=== PATIENT | female | born 2000 | race Caucasian/White ===

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

== ENCOUNTER 2020-08-12 09:25 | Emergency (ER) | payer BC, OTHER, SELFPAY ==
[2020-08-12 10:10] VITALS: BP 126/76; PULSE 98; RESP 18; TEMP 36.7; O2SAT 99; BMI 34.1
--- NOTE | 2020-08-12 10:31 | HMH.EDUTC ---
[facility] [place] Clinical Impression: Encounter for laboratory testing for COVID-19 virus Disposition: Home, Self-Care Condition on Discharge: Good Instructions: DI for COVID-19 (Suspected or Confirmed ), Coronavirus Disease 2019, Preventing the Spread of Coronavirus Discharge Instructions Additional Instructions: *Monitor Temp, Over the counter Motrin or Tylenol as directed/as needed Tylenol every 4 hours and Motrin every 6 hours (as long as your family doctor has told you that you can take it) for fever or pain. and straight to ER if unable to lower temp less than 101.0 after medication given *Warm salt water gargles may help to soothe the throat *Throat Lozenges *Warm fluids like tea with honey may help to soothe the throat *Sleep elevated *Humidifier/Vaporizer Follow up IMMEDIATELY for new or worsening symptoms or no Noticeable improvement over the next 48-72 hours. 911 for difficulty breathing or swallowing You were tested for today for COVID19 your test result should be back in the next 24-48 hours, you may call to the [facility] to see if your test results are back in the next 48 hours [phone] [facility] hours are 9am-9pm You was given a handout with instructions for Self Quarantine and Self isolation for while you wait on test results and what to do if they are positive If you are positive the Health Dept will be contacting you also Referrals: Jonathan Stone [Primary Care Provider] - As needed Forms: Work/School Release Time of Disposition: 10:33 Medical Decision Making - Maulik Inquiry Pt receiving controlled substance: No Maulik was queried for this patient: No Vital Signs: 08/12/20 10:10 Temperature 98.0 F Temperature Source Oral Pulse Rate [Right Brachial] 98 H Respiratory Rate 18 Blood Pressure [Right Arm] 126/76 Blood Pressure Mean [Right Arm] 92 Blood Pressure Source [Right Arm] Automatic Cuff Blood Pressure Position [Right Arm] Sitting 02 Sat by Pulse Oximetry 99 Oxygen Delivery Method Room Air Orders (Tests/Meds): ORDERS Category Date Time Status Covid-19 Nasal PCR Sendout [facility] Stat [facility] 08/12/20 10:04 Received [facility] [place] HPI - General Stated complaint: Covid test Time Seen by Provider: 08/12/20 10:31 Mode of Arrival: Ambulatory Source of Information: Patient Limitations: No Limitations Description of Symptoms (Recalled from Triage Doc. by RN): PATIENT TEST POSITIVE WITH RAPID TEST AT WORK. NEEDING A PCR. HEENT Symptoms (Recalled from RN notes): No Resp Symptoms (Recalled from RN notes): No Skin Symptoms (Recalled from RN notes): No MS Symptoms (Recalled from RN notes): No Functional Status (Recalled from RN notes): WNL - History of Present Illness Provider Complaint: Patient states that she tested positive on Rapid COVID test at work States that she has been having body aches, chills and over all not feeling well and they wanted her to come in and get PCR test - Related Data Home Medications Medication Instructions Recorded Confirmed norethindrone acetate 1.5 1 tab PO DAILY 04/22/18 10/17/18 mg-ethinyl estradiol 30 mcg tablet Previous Rx's Medication Instructions Recorded Ondansetron [Zofran 4mg ODT] 4 mg PO Q8HP PRN #20 tab.rapdis 08/23/19 Allergies Allergy/AdvReac Type Severity Reaction Status Date / Time cephalexin [From KEFLEX] Allergy Unknown Verified 06/20/18 11:05 - Worker's Comp Is this a Worker's Comp case?: No [facility] History - Hepatitis A Screen Drug use history?: No High risk sexual behaviors?: No History of sexually transmitted infection?: No Currently employed?: No Childcare worker?: No Do you have indoor plumbing?: Yes Do you have electricity?: Yes Attestation statement:: This patient has been screened for Hepatitis A risk factors. I have reviewed the patient's past medical history: Yes Medical History: Denies:: Cancer, Diabetes Mellitus Type 1, Diabetes Mellitus Type 2, MRSA Laterality Cases: Bilateral: Tonsillectomy Amp
[2020-08-12 10:45] VITALS: BP 126/76; PULSE 98; RESP 18; TEMP 36.7; O2SAT 99
[2020-08-13 10:12] LABS: Covid-19 Nasal PCR Sendout P&C POSITIVE
--- NOTE | 2020-08-13 10:46 | PC.NURSE ---
PT NOTIFIED OF POSITIVE COVID RESULT
== END 2020-08-12 10:48 | disposition home or self-care (01) ==
PROVIDERS: Emergency Provider Nurse Practitioner; PCP Internal Medicine
DX: U07.1 COVID-19 (principal); F17.210 Nicotine dependence, cigarettes, uncomplicated
CPT/HCPCS: 99202; G0463; U0004

== ENCOUNTER → 2021-07-06 14:19 | Outpatient (CLI) | payer BC, OTHER, SELFPAY ==
[2021-07-06 15:03] LABS: Basophils % 0.3 % (0.1-2.0); Eosinophils % 0.3 % (0.1-12.0); Hemoglobin 13.2 g/dL (12.2-16.2); Lymphocytes # 1.1 K/mm3 (0.7-4.5); Lymphocytes % 13.8 % (10-50); Mean Corpuscular HGB Conc 32.8 g/dL (31.8-35.4); Mean Corpuscular Hemoglobin 29.3 pg (27.0-31.2); Mean Corpuscular Volume 89.1 fl (81-99); Mean Platelet Volume 6.8 fl (7.4-10.4); Monocytes # 0.3 K/mm3 (0.1-1.0); Monocytes % 3.6 % (1.7-9.3); Neutrophils # 6.5 K/mm3 (1.8-7.8); Neutrophils % 82.1 % (37.0-80.0); Platelet Count 519 K/mm3 (142-424); Red Blood Count 4.49 M/mm3 (4.20-5.40); Red Cell Distribution Width 12.3 % (11.5-17.5); White Blood Count 7.9 K/mm3 (4.8-10.8)
[2021-07-06 15:07] LABS: Alanine Aminotransferase 26 U/L (12-78); Albumin Level 4.3 g/dl (3.5-5.0); Albumin/Globulin Ratio 1.4 (1.1-1.8); Alkaline Phosphatase 70 U/L (38-126); Amylase 42 U/L (30-110); Anion Gap 13.3 mEq/L (5-15); Aspartate Amino Transferase 22 U/L (14-36); Bilirubin,Total 1.5 mg/dl (0.2-1.3); Blood Urea Nitrogen 13 mg/dl (7-17); Calcium 9.2 mg/dl (8.4-10.2); Carbon Dioxide 29 mmol/L (22.0-30.0); Chloride 98 mmol/L (98-107); Estimated Glomerular Filt Rate 106 ml/min (>60); GFR (African American) 128 ML/MIN (>60); Globulin 3.1 g/dL (1.3-3.2); Glucose 107 mg/dl (74-100); Potassium 4.3 mmoL/L (3.5-5.1); Sodium 136 mmol/L (136-145); Total Protein,Serum 7.4 g/dl (6.3-8.2)
[2021-07-06 15:43] LABS: Urine Pregnancy, HCG Qual. Negative (Negative)
== END ==
PROVIDERS: Visit Provider Internal Medicine
DX: R10.11 Right upper quadrant pain (principal)
CPT/HCPCS: 36415; 80053; 81025; 82150; 85025

== ENCOUNTER → 2021-07-13 08:57 | Outpatient (CLI) | payer BC, OTHER, SELFPAY ==
--- NOTE | 2021-07-13 09:00 | US_ITS ---
PROCEDURE: US ABDOMEN LIMITED CLINICAL INDICATION: RUQ PAIN COMPARISON: No exams were available for comparison FINDINGS: PANCREAS: Unremarkable. No obvious mass or abnormal fluid collection. No ductal dilatation LIVER: No focal liver lesions demonstrated. Homogeneous echogenicity. No intrahepatic biliary ductal dilatation evident. There is appropriate direction of blood flow within a non dilated portal vein RIGHT KIDNEY: Unremarkable. Normal size and echogenicity. No hydronephrosis GALLBLADDER: No gallstones, gallbladder wall thickening, pericholecystic fluid, or biliary dilatation. IMPRESSION: Unremarkable limited abdominal ultrasound as detailed above disc Dictated by: Iker Vidal MD 07/13/2021 16:43 Iker Vidal MD in [place] 07/13/2021 16:43
== END ==
PROVIDERS: PCP Internal Medicine; Visit Provider Internal Medicine
DX: R10.11 Right upper quadrant pain (principal); R11.2 Nausea with vomiting, unspecified
CPT/HCPCS: 76705

== ENCOUNTER → 2021-09-07 12:11 | Outpatient (CLI) | payer BC, OTHER, SELFPAY ==
[2021-09-07 13:16] LABS: Basophils # 0.1 K/mm3 (0-0.2); Basophils % 0.7 % (0.1-2.0); Eosinophils # 0.2 K/mm3 (0.0-0.4); Eosinophils % 2.4 % (0.1-12.0); Hematocrit 41.1 % (37.0-47.0); Hemoglobin 13.3 g/dL (12.2-16.2); Lymphocytes # 3.4 K/mm3 (0.7-4.5); Lymphocytes % 38.5 % (10-50); Mean Corpuscular HGB Conc 32.4 g/dL (31.8-35.4); Mean Corpuscular Hemoglobin 28.7 pg (27.0-31.2); Mean Corpuscular Volume 88.7 fl (81-99); Mean Platelet Volume 7.9 fl (7.4-10.4); Monocytes # 0.5 K/mm3 (0.1-1.0); Monocytes % 5.1 % (1.7-9.3); Neutrophils # 4.8 K/mm3 (1.8-7.8); Neutrophils % 53.3 % (37.0-80.0); Platelet Count 401 K/mm3 (142-424); Red Blood Count 4.63 M/mm3 (4.20-5.40); Red Cell Distribution Width 12.8 % (11.5-17.5); White Blood Count 8.9 K/mm3 (4.8-10.8)
[2021-09-07 13:37] LABS: Chloride 105 mmol/L (98-107); Potassium 4.3 mmoL/L (3.5-5.1); Sodium 136 mmol/L (136-145)
[2021-09-07 13:39] LABS: Alanine Aminotransferase 11 U/L (12-78); Alkaline Phosphatase 49 U/L (38-126); Aspartate Amino Transferase 19 U/L (14-36); Bilirubin,Total 0.6 mg/dl (0.2-1.3); Blood Urea Nitrogen 14 mg/dl (7-17); Estimated Glomerular Filt Rate 106 ml/min (>60); GFR (African American) 128 ML/MIN (>60)
[2021-09-07 13:40] LABS: Albumin Level 4.2 g/dl (3.5-5.0); Albumin/Globulin Ratio 1.5 (1.1-1.8); Anion Gap 9.3 mEq/L (5-15); Calcium 8.5 mg/dl (8.4-10.2); Carbon Dioxide 26 mmol/L (22.0-30.0); Cholesterol 164 mg/dl (140-200); Globulin 2.8 g/dL (1.3-3.2); Glucose 78 mg/dl (74-100); HDL Cholesterol 55 mg/dl (40-60); Triglycerides 183 mg/dl (30-150); VLDL Cholesterol 37 mg/dL (0-40)
[2021-09-07 13:51] LABS: Direct LDL Cholesterol 90.79 mg/dL (100-129)
[2021-09-07 14:12] LABS: HCG Qualitative, Serum Negative (Negative)
== END ==
PROVIDERS: Visit Provider Internal Medicine
DX: E03.9 Hypothyroidism, unspecified (principal); L74.519 Primary focal hyperhidrosis, unspecified; R11.2 Nausea with vomiting, unspecified; Z32.00 Encounter for pregnancy test, result unknown
CPT/HCPCS: 80053; 80061; 84443; 84703; 85025

== ENCOUNTER → 2023-03-29 13:54 | Outpatient (CLI) | payer BC, SELFPAY ==
[2023-03-29 15:37] LABS: Amylase 43 U/L (30-110)
[2023-03-29 15:40] LABS: Basophils % 0.3 % (0.1-2.0); Eosinophils # 0.1 K/mm3 (0.0-0.4); Eosinophils % 1.6 % (0.1-12.0); Hematocrit 42.9 % (37.0-47.0); Hemoglobin 14.2 g/dL (12.2-16.2); Lymphocytes # 2.1 K/mm3 (0.7-4.5); Lymphocytes % 25.7 % (10-50); Mean Corpuscular Hemoglobin 30.4 pg (27.0-31.2); Mean Corpuscular Volume 92.1 fl (81-99); Mean Platelet Volume 8.5 fl (7.4-10.4); Monocytes # 0.4 K/mm3 (0.1-1.0); Monocytes % 4.6 % (1.7-9.3); Neutrophils # 5.6 K/mm3 (1.8-7.8); Neutrophils % 67.7 % (37.0-80.0); Platelet Count 358 K/mm3 (142-424); Red Blood Count 4.66 M/mm3 (4.20-5.40); Red Cell Distribution Width 12.3 % (11.5-17.5); White Blood Count 8.3 K/mm3 (4.8-10.8)
[2023-04-01 17:18] LABS: Thyroid Stimulating Hormone 0.74 uIU/mL (0.465-4.68)
== END ==
PROVIDERS: PCP Internal Medicine; Visit Provider Internal Medicine
DX: R10.13 Epigastric pain (principal); E03.9 Hypothyroidism, unspecified
CPT/HCPCS: 82150; 84443; 85025

== ENCOUNTER 2023-04-02 08:14 | Emergency (ER) | payer BC, SELFPAY ==
[2023-04-02 08:15] VITALS: BP 146/85; PULSE 72; RESP 16; TEMP 36.8; O2SAT 98; BMI 30.5
--- NOTE | 2023-04-02 08:28 | PC.NURSE ---
dr ernst at bedside
[2023-04-02 08:31] LABS: Basophils # 0.1 K/mm3 (0-0.2); Basophils % 0.6 % (0.1-2.0); Eosinophils # 0.2 K/mm3 (0.0-0.4); Eosinophils % 1.6 % (0.1-12.0); Hematocrit 43.6 % (37.0-47.0); Hemoglobin 14.1 g/dL (12.2-16.2); Lymphocytes % 33.3 % (10-50); Mean Corpuscular HGB Conc 32.3 g/dL (31.8-35.4); Mean Corpuscular Hemoglobin 28.9 pg (27.0-31.2); Mean Corpuscular Volume 89.3 fl (81-99); Mean Platelet Volume 7.7 fl (7.4-10.4); Monocytes # 0.4 K/mm3 (0.1-1.0); Monocytes % 3.7 % (1.7-9.3); Neutrophils # 7.4 K/mm3 (1.8-7.8); Neutrophils % 60.9 % (37.0-80.0); Platelet Count 393 K/mm3 (142-424); Red Blood Count 4.88 M/mm3 (4.20-5.40); Red Cell Distribution Width 12.1 % (11.5-17.5); White Blood Count 12.1 K/mm3 (4.8-10.8)
--- NOTE | 2023-04-02 08:37 | HMH.EDGENADL ---
Discharge Plan Disposition Patient Disposition: Home, Self-Care Prescriptions Prescriptions: New esomeprazole magnesium 20 mg capsule,delayed release(DR/EC) 20 mg PO DAILY 56 Days Qty: 56 1RF alum-mag hydroxide-simeth [Maalox Maximum Strength] 400-400-40 mg/5 mL suspension 5 ml PO Q6H PRN (Reason: indigestion) Qty: 355 1RF No Action Loestrin 1.5/30 (21) 1.5-30 mg-mcg tablet 1 tab PO DAILY Rx Instructions: Patient no longer taking ondansetron 4 MG tablet,disintegrating 4 mg PO Q8HP PRN (Reason: Nausea) Qty: 20 0RF levonorg-eth estrad triphasic [Enpresse] 50-30 (6)/75-40 (5)/125-30(10) tablet 1 tab PO DAILY Patient Comments: TAKE 1 TABLET BY MOUTH ONCE DAILY famotidine 20 mg tablet 20 mg PO DAILY Referrals Follow up/Referrals: Jonathan Stone MD [Primary Care Provider] - See instructions Activity Restrictions/Add. Instructions Additional Instructions/Restrictions: Take esomeprazole 20 mg (1 tab) each night for 6 weeks. If symptoms do not improve after about 1 week, increase to 40 mg (2 tabs) each night. Maalox 2-3 times per day for symptoms, this will also help just prior to eating. Call your family doctor to establish care for this visit to the emergency department and schedule follow-up within 48 hours to ensure improvement. If you have any worsening of your condition or any other concerning signs or symptoms, return to the emergency department or your primary care doctor for further evaluation. Clinical Impressions Clinical Impression: Gastritis Qualifiers: Gastritis type: unspecified gastritis Chronicity: acute Gastritis bleeding: without bleeding Qualified Code(s): K29.00 - Acute gastritis without bleeding Instructions Patient Instructions: DI for Acute Abdominal Pain Discharge ED Provider: Wilton Woo [facility] Adult HPI General Chief complaint: Abdominal Pain Stated complaint: vomiting, diarrhea Time Seen by Provider: 04/02/23 08:18 Mode of Arrival: Ambulatory Source of Information: Patient Limitations: No Limitations Description of Symptoms (Recalled from ER Triage Doc. by RN): pt reports intermittent abdominal pain, vomiting, nausea, and diarrhea x2 weeks, states abdominal pain occurs after she eats, saw Dr Stone on [place] for this and he ordered a MRI and upper scope History of Present Illness HPI narrative: Is a 22-year-old female who is otherwise healthy presenting with vomiting. Patient states that she has been vomiting basically every day for the last 2 weeks. Saw primary care, was given ondansetron and famotidine without relief. Patient states that she vomits primarily with eating. She eats, within a couple of minutes she is vomiting nonbloody, nonbilious vomit. She is also been having nonbloody, non-mucousy diarrhea. Has had associated mild epigastric pain worse with vomiting that does not radiate. Denies fevers or chills, rash, chest pain, shortness of breath, dysuria, hematuria, abnormal vaginal discharge or bleeding, or any other concerns. Does not have any surgical history. Related Data Home Medications Medication Instructions Recorded Confirmed norethindrone acetate 1.5 1 tab PO DAILY bc 04/22/18 04/02/23 mg-ethinyl estradiol 30 mcg tablet (Loestrin) famotidine 20 mg tablet 20 mg PO DAILY . 04/02/23 04/02/23 l.norgest-eth.estradiol triphasic 1 tab PO DAILY control 04/02/23 04/02/23 50-30 (6)/75-40(5)/125-30(10) tablet (Enpresse) Previous Rx's Medication Instructions Recorded ondansetron 4 mg disintegrating 4 mg PO Q8HP PRN Nausea ##20 08/23/19 tablet aluminum-mag hydroxide-simethicone 5 ml PO Q6H PRN indigestion #355 mL 04/02/23 400 mg-400 mg-40 mg/5 mL oral susp (Maalox Maximum Strength) esomeprazole magnesium 20 mg 20 mg PO DAILY 8 weeks #56 caps 04/02/23 capsule,delayed release Allergies Allergy/AdvReac Type Severity Reaction Status Date / Time cephalexin [From KEFLEX] Allergy Unknown Verified
[2023-04-02 08:43] LABS: Microscopic, Urine URINE MICROSCOPIC (MICROSCOPIC)
[2023-04-02 08:44] LABS: Alanine Aminotransferase 20 U/L (12-78); Albumin Level 4.7 g/dl (3.5-5.0); Albumin/Globulin Ratio 1.3 (1.1-1.8); Alkaline Phosphatase 61 U/L (38-126); Anion Gap 14.6 mEq/L (5-15); Aspartate Amino Transferase 27 U/L (14-36); Bilirubin,Total 0.9 mg/dl (0.2-1.3); Blood Urea Nitrogen 9 mg/dl (7-17); Calcium 9.3 mg/dl (8.4-10.2); Carbon Dioxide 25 mmol/L (22.0-30.0); Chloride 105 mmol/L (98-107); Creatinine Clearance Estimated 176 mL/min (50-200); Estimated Glomerular Filt Rate 105 ml/min (>60); GFR (African American) 127 ML/MIN (>60); Globulin 3.6 g/dL (1.3-3.2); Glucose 124 mg/dl (74-100); Lipase 65 U/L (23-300); Potassium 3.6 mmoL/L (3.5-5.1); Sodium 141 mmol/L (136-145); Total Protein,Serum 8.3 g/dl (6.3-8.2)
[2023-04-02 08:44] LABS: Appearance,Urine CLEAR (Clear); Bilirubin,Urine Negative (Negative); Blood, Urine TRACE-I (Negative); Color,Urine YELLOW (Yellow); Glucose,Urine (UA) Negative (Negative); Ketones,Urine Negative (Negative); Leukocyte Esterase,Urine Negative (Negative); Nitrate,Urine Negative (Negative); PH,Urine 6.5 (5.0-8.5); Protein,Urine Negative (Negative); Specific Gravity, Urine <= 1.005 (1.005-1.030); Urobilinogen,Urine 0.2 EU/dl (0.2)
[2023-04-02 08:54] LABS: Bacteria,Urine Trace /lpf; RBC,Urine Occasional #/hpf (0-3); Squamous Epithelial Cell,Urine Occasional #/hpf (0-5)
[2023-04-02 09:02] VITALS: BP 139/75; PULSE 83; RESP 18; O2SAT 100
[2023-04-02 09:05] LABS: HCG,Quantitative < 2 mIU/ml (0-5.42)
--- NOTE | 2023-04-02 09:25 | PC.NURSE ---
provided pt with warm blanket.
[2023-04-02 09:30] VITALS: BP 128/65; PULSE 68; O2SAT 100
--- NOTE | 2023-04-02 09:48 | PC.NURSE ---
assisted pt to the bathroom and back to room. call light within reach. bed in lowest position. no questions or concerns voiced at this time.
[2023-04-02 10:00] VITALS: BP 120/71; PULSE 91; O2SAT 99
[2023-04-02 10:43] VITALS: BP 122/73; PULSE 85; RESP 18; TEMP 36.7; O2SAT 98
== END 2023-04-02 10:43 | disposition home or self-care (01) ==
PROVIDERS: Emergency Provider Emergency Medicine; PCP Internal Medicine
DX: K29.00 Acute gastritis without bleeding (principal); R10.13 Epigastric pain
CPT/HCPCS: 80053; 81001; 83690; 84702; 85025; 96361; 96374; 96375; 99285; J0131

== ENCOUNTER → 2023-04-13 09:23 | Outpatient (CLI) | payer BC, SELFPAY ==
--- NOTE | 2023-04-13 09:34 | FL_ITS ---
FINAL REPORT CLINICAL HISTORY: EPIGASTRIC PAIN Fluoro time: .14 DAP 113.14 FINDINGS: UPPER GI EXAM HISTORY: Epigastric pain. PROCEDURE: The patient ingested barium. Effervescent crystals were also administered. Spot and overhead films were obtained. FINDINGS: The esophagus is normal. There is no hiatal hernia. There is no gastroesophageal reflux. Peristalsis is normal. The rugal fold pattern of the stomach is normal. The duodenal bulb is normal. Fluoro time: 1.49 minutes. DAP: 113.14 uGym2. 17 radiographs were obtained IMPRESSION: Normal upper GI. Films reviewed , interpreted and dictated by Dr. Morales. Transcribed by Pradip Hawley PA-C. Reviewed, Interpreted and Dictated by Timur Morales MD Transcribed by ALBERTO oMntoya Authenticated and [facility]
== END ==
PROVIDERS: PCP Internal Medicine; Visit Provider Internal Medicine
DX: R10.13 Epigastric pain (principal)
CPT/HCPCS: 74246

== ENCOUNTER 2023-12-27 23:17 | Emergency (ER) | payer BC, SELFPAY ==
--- NOTE | 2023-12-27 23:22 | ED_ITS ---
Discharge Plan Disposition Patient Disposition: Home, Self-Care Prescriptions Prescriptions: New promethazine 25 mg tablet 25 mg PO Q6H PRN (Reason: nausea and vomiting) Qty: 20 0RF No Action Loestrin 1.5/30 (21) 1.5-30 mg-mcg tablet 1 tab PO DAILY Rx Instructions: Patient no longer taking ondansetron 4 MG tablet,disintegrating 4 mg PO Q8HP PRN (Reason: Nausea) Qty: 20 0RF levonorg-eth estrad triphasic [Enpresse] 50-30 (6)/75-40 (5)/125-30(10) tablet 1 tab PO DAILY Patient Comments: TAKE 1 TABLET BY MOUTH ONCE DAILY famotidine 20 mg tablet 20 mg PO DAILY esomeprazole magnesium 20 mg capsule,delayed release(DR/EC) 20 mg PO DAILY 56 Days Qty: 56 1RF alum-mag hydroxide-simeth [Maalox Maximum Strength] 400-400-40 mg/5 mL suspension 5 ml PO Q6H PRN (Reason: indigestion) Qty: 355 1RF Referrals Follow up/Referrals: Jonathan Stone MD [Primary Care Provider] - See instructions Activity Restrictions/Add. Instructions Additional Instructions/Restrictions: Please follow-up with your primary care provider. Please return to the emergency department if you develop any new or worsening symptoms or become concerned for your health. Please take Phenergan and Zofran as needed for nausea and vomiting. Clinical Impressions Clinical Impression: Nausea and vomiting, Diarrhea, Acute dehydration Instructions Patient Instructions: DI for Diarrhea and Traveler's Diarrhea -- Adult, DI for Diarrhea and Traveler's Diarrhea -- Child, DI for Nausea -- Adult, DI for Nausea -- Child Discharge ED Provider: Myron Herrera General Adult HPI General Chief complaint: Nausea/Vomiting/Diarrhea Stated complaint: vomiting and diarrhea Time Seen by Provider: 12/27/23 23:19 History of Present Illness HPI narrative: 23-year-old female without significant past medical history presents to the ER with acute nausea vomiting and diarrhea. She reports this started at approximately 1 PM. She took some Zofran at that time and again at 5 PM. Despite this, she reports she has vomited at least 30 times and had significant repeated diarrhea. She denies any fever, recent illness, abnormal food ingestion or obvious sick contacts. She reports some crampy abdominal pain, reports it is generalized in nature and present only with vomiting. Denies any urinary symptoms. Denies any history of abdominal surgery. Last menstrual cycle was 1 week ago. Related Data Home Medications Medication Instructions Recorded Confirmed norethindrone acetate 1.5 1 tab PO DAILY bc 04/22/18 04/02/23 mg-ethinyl estradiol 30 mcg tablet (Loestrin) famotidine 20 mg tablet 20 mg PO DAILY . 04/02/23 04/02/23 l.norgest-eth.estradiol triphasic 1 tab PO DAILY control 04/02/23 04/02/23 50-30 (6)/75-40(5)/125-30(10) tablet (Enpresse) Previous Rx's Medication Instructions Recorded ondansetron 4 mg disintegrating 4 mg PO Q8HP PRN Nausea ##20 08/23/19 tablet aluminum-mag hydroxide-simethicone 5 ml PO Q6H PRN indigestion #355 mL 04/02/23 400 mg-400 mg-40 mg/5 mL oral susp (Maalox Maximum Strength) esomeprazole magnesium 20 mg 20 mg PO DAILY 8 weeks #56 caps 04/02/23 capsule,delayed release promethazine 25 mg tablet 25 mg PO Q6H PRN nausea and 12/28/23 vomiting #20 tabs Allergies Allergy/AdvReac Type Severity Reaction Status Date / Time cephalexin [From KEFLEX] Allergy Unknown Verified 04/02/23 08:34 [facility] Disclaimer: The information contained in this section may have been updated after the patient was seen, as this information can be updated by other users. Social History Smoking Status: Current every day smoker tobacco type: cigarettes packs per day: 1 second hand exposure: Yes alcohol intake: never substance use type: denies use current occupational status: other Travel in the last 8 weeks: None household members: family housing: house ROS Obtained: Yes All systems reviewed & no additional complaints except as documented Physical Exam General General appearance: alert and in no apparent distress Head Head exam: atraumatic and normocephalic Eye Eye exam: Present normal appearance, PERRL and EOMI ENT ENT exam: Present normal oropharynx and normal external ear exam Neck Neck exam: Present normal inspection and full ROM Chest Chest inspection: Present normal inspection and symmetric chest wall rise; Absent tenderness Respiratory Respiratory exam: Present normal lung sounds bilaterally; Absent respiratory distress Cardiovascular Cardiovascular exam: Present normal rhythm and tachycardia Abdominal Exam Abdominal exam: Present soft; Absent distention, tenderness or guarding Extremities Exam Extremities exam: Present normal inspection; Absent edema or joint swelling Back Exam Back exam: Present normal inspection; Absent tenderness Neurological Exam Neurological exam: Present alert and oriented X3; Absent motor sensory deficit Psychiatric Psychiatric exam: Present normal affect and normal mood Skin Skin exam: Present warm, dry and normal color Lymphatic Lymphatic Findings: no adenopathy Medical Decision Making Medical Records Medical records reviewed: Yes I reviewed the patient's medical records. Maulik Inquiry Pt receiving controlled substance: No Maulik was queried for this patient: No Vital Signs: 12/27/23 23:26 12/27/23 23:30 Temperature 99.5 F Temperature Source Oral Pulse Rate 122 H Pulse Rate [Right Radial] 134 H Respiratory Rate 20 Blood Pressure 126/75 Blood Pressure [Left Arm] 137/89 Blood Pressure Mean 92 Blood Pressure Mean [Left Arm] 105 Blood Pressure Source [Left Arm] Automatic Cuff Blood Pressure Position [Left Arm] Sitting 02 Sat by Pulse Oximetry 97 97 Oxygen Delivery Method Room Air Lab Data Lab results reviewed: Yes I reviewed the patient's lab results. Lab Results 12/27/23 23:25: WBC 10.5, RBC 5.36, Hgb 16.3 H, Hct 48.7 H, MCV 90.9, MCH 30.4, MCHC 33.5, RDW 12.8, Plt Count 364, MPV 7.5, Neut % (Auto) 94.5 H, Lymph % (Auto) 1.9 L, Brooke % (Auto) 2.4, Eos % (Auto) 0.7, Baso % (Auto) 0.4, Neut # (Auto) 10.0 H, Lymph # (Auto) 0.2 L, Brooke # (Auto) 0.3, Eos # (Auto) 0.1, Baso # (Auto) 0.0, Total Counted 100, Neutrophils % (Manual) 92 H, Lymphocytes % (Manual) 7 L, Monocytes % (Manual) 1 L, Platelet Estimate Normal, RBC Morphology Normal, Sodium 138, Potassium 4.1, Chloride 104, Carbon Dioxide 21 L, Anion Gap 17.1 H, BUN 18 H, Creatinine 0.70, Estimated Creat Clear 179, Estimated GFR 104, Est GFR ( Amer) 125, Glucose 163 H, Calcium 9.6, Magnesium 1.5 L, Total Bilirubin 2.8 H, AST 29, ALT 29, Alkaline Phosphatase 76, Total Protein 8.3 H, Albumin 4.8, Globulin 3.5 H, Albumin/Globulin Ratio 1.4, Lipase 32, Serum HCG, Qual Negative 12/27/23 23:25 12/27/23 23:25 Orders (Tests/Meds): ED MEDICATIONS Generic Name Dose Route Start Last Admin Trade Name Freq PRN Reason Stop Dose Admin Lactated Ringer's 1,000 mls @ 999 mls/hr 12/27/23 23:30 12/28/23 00:13 Lactated Ringer's 1000 Ml Bag IV 12/28/23 01:30 999 mls/hr .Q1H1M NEL Administration Discontinued Medications Generic Name Dose Route Start Last Admin Trade Name Freq PRN Reason Stop Dose Admin Acetaminophen 1,000 mg 12/28/23 00:20 12/28/23 00:21 Acetaminophen 500mg Tab PO 12/28/23 00:21 1,000 mg ONCE ONE Administration Metoclopramide HCl 10 mg 12/27/23 23:26 12/27/23 23:31 Metoclopramide Hcl 10mg/2ml Vial IVP 12/27/23 23:27 10 mg ONCE ONE Administration Ondansetron HCl 4 mg 12/27/23 23:26 12/27/23 23:31 Ondansetron 4mg/2ml Vial IV 12/27/23 23:27 4 mg ONCE ONE Administration ORDERS Category Date Time Status CBC w/Auto Diff [Complete Blood Count Auto Diff] Stat Lab 12/27/23 23:25 Completed CMP [Comprehensive Metabolic Panel] Stat Lab 12/27/23 23:25 Completed HCG Qualitative, Serum Stat Lab 12/27/23 23:25 Completed Lipase Stat Lab 12/27/23 23:25 Completed Magnesium Stat Lab 12/27/23 23:25 Completed Medical Decision Narrative: 23-year-old female without significant past medical history presents with nausea vomiting and diarrhea for approximately 12 hours. Reports it is severe and persistent nature despite home medications.. History was obtained interactive discussion with patient, chart review. On arrival, patient is [afebrile, hemodynamically stable but tachycardic, satting appropriately, alert, oriented x4, GCS 15], moving all extremities spontaneously. Full physical exam performed and significant for benign abdominal exam. Differential includes but is not limited to gastroenteritis, pancreatitis, , gallbladder pathology, electrolyte derangement. Patient was given 2 L IV fluid bolus, Reglan, Zofran, for symptomatic management and correction of underlying abnormalities. Workup initiated including CBC CMP lipase test mag. On re-evaluation, patient [remains afebrile, HD stable.] Tachycardia resolved, now sinus rhythm in the 90s. Laboratory workup independently interpreted by me and significant for no leukocytosis, mild hypomagnesemia, hyperbilirubinemia. CT abdomen pelvis and EKG was considered, but deemed unnecessary due to history and physical exam.. Given patient history, exam and workup, patient's presentation most likely represents gastroenteritis with significant nausea vomiting and diarrhea resulting in dehydration. This findings were communicated with patient. She was able to tolerate liquids as well as oral medication. She is discharged in stable condition with a prescription for Phenergan and return precautions. Procedures Risk/Benefits of Procedure(s) Were Explained: Yes Critical Care Critical Care Time Critical Care Time: No
[2023-12-27 23:26] VITALS: BP 137/89; PULSE 134; RESP 20; TEMP 37.5; O2SAT 97; BMI 31.3
[2023-12-27 23:30] VITALS: BP 126/75; PULSE 122; O2SAT 97
[2023-12-27] MEDS: LACTATED RINGERS 1000ML 1,000 ML 999 ML IV (23:31)
[2023-12-27] MEDS: ONDANSETRON 4MG/2ML VIAL 4 MG IV (23:31)
[2023-12-27] MEDS: METOCLOPRAMIDE HCL 10MG/2ML VIAL 10 MG IVP (23:31)
[2023-12-27 23:35] LABS: Basophils % 0.4 % (0.1-2.0); Eosinophils # 0.1 K/mm3 (0.0-0.4); Eosinophils % 0.7 % (0.1-12.0); Hematocrit 48.7 % (37.0-47.0); Hemoglobin 16.3 g/dL (12.2-16.2); Lymphocytes # 0.2 K/mm3 (0.7-4.5); Lymphocytes % 1.9 % (10-50); Mean Corpuscular HGB Conc 33.5 g/dL (31.8-35.4); Mean Corpuscular Hemoglobin 30.4 pg (27.0-31.2); Mean Corpuscular Volume 90.9 fl (81-99); Mean Platelet Volume 7.5 fl (7.4-10.4); Monocytes # 0.3 K/mm3 (0.1-1.0); Monocytes % 2.4 % (1.7-9.3); Neutrophils % 94.5 % (37.0-80.0); Platelet Count 364 K/mm3 (142-424); Red Blood Count 5.36 M/mm3 (4.20-5.40); Red Cell Distribution Width 12.8 % (11.5-17.5); White Blood Count 10.5 K/mm3 (4.8-10.8)
[2023-12-27 23:38] LABS: MANUAL DIFFERENTIAL MANUAL DIFFERENTIAL (MANUAL DIFF)
[2023-12-27 23:46] LABS: Alanine Aminotransferase 29 U/L (12-78); Albumin Level 4.8 g/dl (3.5-5.0); Albumin/Globulin Ratio 1.4 (1.1-1.8); Alkaline Phosphatase 76 U/L (38-126); Anion Gap 17.1 mEq/L (5-15); Aspartate Amino Transferase 29 U/L (14-36); Bilirubin,Total 2.8 mg/dl (0.2-1.3); Blood Urea Nitrogen 18 mg/dl (7-17); Calcium 9.6 mg/dl (8.4-10.2); Carbon Dioxide 21 mmol/L (22.0-30.0); Chloride 104 mmol/L (98-107); Creatinine Clearance Estimated 179 mL/min (50-200); Estimated Glomerular Filt Rate 104 ml/min (>60); GFR (African American) 125 ML/MIN (>60); Globulin 3.5 g/dL (1.3-3.2); Glucose 163 mg/dl (74-100); Lipase 32 U/L (23-300); Magnesium 1.5 mg/dl (1.6-2.3); Potassium 4.1 mmoL/L (3.5-5.1); Sodium 138 mmol/L (136-145); Total Protein,Serum 8.3 g/dl (6.3-8.2)
[2023-12-27 23:47] LABS: HCG Qualitative, Serum Negative (Negative)
[2023-12-28 00:10] LABS: Lymphocytes % 7 % (10-50); Monocytes % 1 % (2-9); Neutrophils % 92 % (42-76); Platelet Estimate Normal; RBC Morphology Normal; Total Cells Counted 100
[2023-12-28] MEDS: LACTATED RINGERS 1000ML 1,000 ML 999 ML IV (00:13)
[2023-12-28] MEDS: ACETAMINOPHEN 500MG TAB 1000 MG PO (00:21)
[2023-12-28 00:41] VITALS: BP 119/63; PULSE 103; RESP 15; TEMP 36.6; O2SAT 97
== END 2023-12-28 00:44 | disposition home or self-care (01) ==
PROVIDERS: Emergency Provider Emergency Medicine; PCP Internal Medicine
DX: E86.0 Dehydration (principal); R11.2 Nausea with vomiting, unspecified; R19.7 Diarrhea, unspecified; E83.42 Hypomagnesemia; E80.7 Disorder of bilirubin metabolism, unspecified; F17.210 Nicotine dependence, cigarettes, uncomplicated
CPT/HCPCS: 80053; 83690; 83735; 84703; 85007; 85025; 96361; 96374; 96375; 99284; J2405; J7120

== ENCOUNTER 2024-10-12 09:11 | Outpatient (CLI) | payer BC, SELFPAY ==
--- NOTE | 2024-10-12 | US_ITS ---
PROCEDURE: US OB /MATERNAL DETAIL CLINICAL INDICATION: 20 WEEK ANATOMY SCAN COMPARISON: No exams were available for comparison FINDINGS: Transabdominal sonographic images of the pelvis were obtained. From her established due date she is 21 weeks 5 days. Single viable intrauterine gestation. Cephalic position. Placenta: Anteriorplacenta grade 1. Placenta is low lying and measures 2.74 cm from the internal cervical os. There is an average amount of fluid. The cervix appears satisfactory. Closed and measuring 3.18 cm in length. Complete survey performed and was unremarkable on the submitted images as in PACS. No discrete anomalies identified on survey imaging by technologist. Active fetus. Three-vessel cord with satisfactory umbilical cord insertion. 4- chamber heart noted. Situs, aortic arch, RVOT, three-vessel view appear normal. All cardiac anatomy was not seen well due to position. Survey of brain & ventricles Unremarkable. Cerebellum, thalamus, choroid plexus, cisterna magna appear normal. Face and neck survey unremarkable. Profile, nasion, lips and nose appeared normal. Diaphragm and chest views unremarkable. Abdomen: Both kidneys noted and unremarkable. Stomach and bladder noted and satisfactory. Spine: Survey of the spine satisfactory with no anomalies identified nor imaged. Cervical, thoracic, lower spine appear normal. Both arms and legs noted. Amniotic Fluid: Adequate. MVP 4.55 cm Measurements: Average ultrasound age 21weeks 2days. Estimated due date by ultrasound age 0702/20/2025. Estimated weight 422g BPD = 20weeks 6days HC = 20weeks 6days AC = 21weeks 6days FL = 21weeks 2days Growth Percentile= 29 Heart Rate = 150bpm Cerebellum = 20weeks 3days Humerus = 21weeks HC/AC is 1.1 FL/BPD is 0.72 FL/AC is 0.21 IMPRESSION: 1. Viable fetus in the cephalic presentation with an anterior placenta grade 1. The placenta is low lying with the placenta 2.74 cm from the internal cervical os. 2. The fluid is within normal limits with an MVP 4.55 cm. 3. Cardiac scans were not complete due to position. Would suggest repeat scan in 2-3 weeks. 4. The rest of the anatomical scan appears normal. 5. biometry is consistent with the dates. Dictated by: Jonny Brown MD 10/12/2024 20:17 Jonny Brown MD in [place] 10/12/2024 20:17
== END 2024-10-12 23:59 | disposition home or self-care (01) ==
PROVIDERS: PCP Internal Medicine; Visit Provider Obstetrics & Gynecology
DX: Z36.3 Encounter for antenatal screening for malformations (principal); Z3A.21 21 weeks gestation of pregnancy
CPT/HCPCS: 76811

== ENCOUNTER 2024-10-18 12:28 | Outpatient (CLI) | payer BC, SELFPAY ==
[2024-10-18 17:12] LABS: Total Volume,Urine 2450 mL (600-1600)
[2024-10-18 17:19] LABS: Total Protein 24 Hour,Urine 245 mg/24 hr (40-90)
== END 2024-10-18 23:59 | disposition home or self-care (01) ==
LOC: LAB 12:28
PROVIDERS: PCP Internal Medicine; Visit Provider Obstetrics & Gynecology
DX: Z34.82 Encounter for supervision of other normal pregnancy, second trimester (principal)
CPT/HCPCS: 84155

== ENCOUNTER 2024-10-31 07:56 | Outpatient (CLI) | payer BC, SELFPAY ==
--- NOTE | 2024-10-31 08:00 | US_ITS ---
PROCEDURE: US OB FOLLOW UP CLINICAL INDICATION: Repeat cardiac scan of fetus due to position COMPARISON: US US OB /MATERNAL DETAIL from 10/12/2024 FINDINGS: Transabdominal sonographic images of the pelvis were obtained. The following parameters are obtained: From her established due date she is 24weeks 3days Viable fetus in the cephalic presentation with an anterior placenta grade 1. The cervix measures 2.66 cm heart rate: 144bpm bpm. Amniotic fluid: Appears normal No obvious anomalies evident. Stomach,, bladder, kidneys, three-vessel cord, four chamber heart appear normal. cardiac scan: Three-vessel view, RVOT, LVOT, four-chamber heart appears normal. IMPRESSION: 1. Viable fetus in the cephalic presentation with an anterior placenta grade 1. Does not appear to be low lying today but would suggest a transvaginal ultrasound and color Doppler at 28 weeks to confirm this. 2. The amniotic fluid appears subjectively normal. 3. Limited anatomical scan appears normal today. 4. cardiac scan appears normal. Dictated by: Jonny Brown MD 10/31/2024 08:56 Jonny Brown MD in [facility] 10/31/2024 08:56
== END 2024-10-31 23:59 | disposition home or self-care (01) ==
PROVIDERS: PCP Internal Medicine; Visit Provider Obstetrics & Gynecology
DX: Z36.2 Encounter for other antenatal screening follow-up (principal); O10.912 Unspecified pre-existing hypertension complicating pregnancy, second trimester; O98.512 Other viral diseases complicating pregnancy, second trimester; B00.9 Herpesviral infection, unspecified; Z3A.24 24 weeks gestation of pregnancy
CPT/HCPCS: 76816

== ENCOUNTER 2024-11-19 10:36 | Outpatient (CLI) | payer BC, SELFPAY ==
[2024-11-19 11:53] LABS: Basophils % 0.3 % (0.1-2.0); Eosinophils # 0.2 Kmm3 (0.0-0.4); Eosinophils % 1.9 % (0.1-12.0); Hematocrit 32.4 % (37.0-47.0); Hemoglobin 11.3 g/dL (12.2-16.2); Lymphocytes # 2.2 K/mm3 (0.7-4.5); Lymphocytes % 19.3 % (10-50); Mean Corpuscular HGB Conc 34.9 g/dL (31.8-35.4); Mean Corpuscular Hemoglobin 30.7 pg (27.0-31.2); Mean Platelet Volume 9.3 fl (7.4-10.4); Monocytes # 0.6 K/mm3 (0.1-1.0); Monocytes % 5.6 % (1.7-9.3); Neutrophils # 8.2 K/mm3 (1.8-7.8); Neutrophils % 71.8 % (37.0-80.0); Nucleated Red Blood Cells # 0 10^3/uL; Nucleated Red Blood Cells % 0 %; Platelet Count 353 K/mm3 (142-424); Red Blood Count 3.68 M/mm3 (4.20-5.40); Red Cell Distribution Width 12.2 % (11.5-17.5); Red Cell Distribution Width-SD 39.5 fL; White Blood Count 11.4 K/mm3 (4.8-10.8)
[2024-11-19 12:09] LABS: Glucose 1 Hour 106 mg/dL (74-100)
[2024-11-20 07:09] LABS: RPR W/RFX Titers Nonreactive (Nonreactive)
== END 2024-11-19 23:59 | disposition home or self-care (01) ==
LOC: LAB 10:37
PROVIDERS: PCP Internal Medicine; Visit Provider Obstetrics & Gynecology
DX: O99.212 Obesity complicating pregnancy, second trimester (principal); O10.912 Unspecified pre-existing hypertension complicating pregnancy, second trimester; Z3A.27 27 weeks gestation of pregnancy; E66.9 Obesity, unspecified
CPT/HCPCS: 36415; 82947; 85025; 86592

== ENCOUNTER 2024-11-28 07:35 | Outpatient (CLI) | payer BC, SELFPAY ==
--- NOTE | 2024-11-28 08:00 | US_ITS ---
PROCEDURE: US OB TRANSVAGINAL CLINICAL INDICATION: Needs 11/28/24 needs color doppler COMPARISON: US US OB /MATERNAL DETAIL from 10/12/2024 US US OB FOLLOW UP from 10/31/2024 FINDINGS: Transabdominal sonographic images of the pelvis were obtained. The following parameters are obtained: From her established due date she is 28weeks 3days Viable fetus in the cephalic presentation with an anterior placenta grade 1. There is no evidence of placenta/Vasa previa today. The cervix measures 3.24-3.84 cm in length transvaginally heart rate: 135bpm bpm. Amniotic fluid: MVP 5.8 cm. Limited anatomical scan: 3 vessel cord, diaphragm, four-chamber heart kidneys, appear normal. IMPRESSION: 1. Viable fetus in the cephalic presentation with an anterior placenta grade 1. There is no evidence of placenta or Vasa previa. 2. Transvaginally the cervix measures 3.24-3.84 cm in length. 3. The fluid is within normal limits with an MVP 5.8 cm. 4. Limited anatomical scan appears normal. Dictated by: Jonny Brown MD 11/28/2024 12:05 Jonny Brown MD in [facility] 11/28/2024 12:05
== END 2024-11-28 23:59 | disposition home or self-care (01) ==
PROVIDERS: PCP Internal Medicine; Visit Provider Obstetrics & Gynecology
DX: O10.919 Unspecified pre-existing hypertension complicating pregnancy, unspecified trimester (principal); Z3A.28 28 weeks gestation of pregnancy
CPT/HCPCS: 76817

== ENCOUNTER 2024-12-21 07:50 | Outpatient (CLI) | payer BC, SELFPAY ==
[2024-12-21 13:42] LABS: HIV Combo NEGATIVE (Negative)
== END 2024-12-21 23:59 | disposition home or self-care (01) ==
LOC: LAB.DROPOF 12-24 07:51
PROVIDERS: PCP Obstetrics & Gynecology; Visit Provider Obstetrics & Gynecology
DX: Z20.2 Contact with and (suspected) exposure to infections with a predominantly sexual mode of transmission (principal)
CPT/HCPCS: 87389

== ENCOUNTER 2024-12-21 08:52 | Outpatient (CLI) | payer BC, SELFPAY ==
--- NOTE | 2024-12-21 09:30 | US_ITS ---
PROCEDURE: US OB FOLLOW UP CLINICAL INDICATION: Needs for LGA COMPARISON: US US OB FOLLOW UP from 10/31/2024 US US OB TRANSVAGINAL from 11/28/2024 FINDINGS: Transabdominal sonographic images of the pelvis were obtained. The following parameters are obtained: From her established due date she is 31weeks 5days Viable fetus in the cephalic presentation with an anterior placenta grade 1-2. The cervix measures 2.94 cm heart rate: 150bpm bpm. Average ultrasound age 31 weeks 5 days Estimated weight 1842 grams, 4 lb 1 oz BPD: 30weeks 6days, 17 percentile HC: 31weeks 6days, 16 percentile AC: 32weeks 0 days, 54 percentile FL: 32weeks 0 days, 43 percentile HC/AC: 1.04 FL/BPD: 0.8 FL/AC: 0.22 Growth percentile: 41 Amniotic fluid: MVP 6.04 cm No obvious anomalies evident. profile seen, stomach, bladder, kidneys, three-vessel cord, four chamber heart appear normal. IMPRESSION: 1. Viable fetus in the cephalic presentation with an anterior placenta grade 1-2. 2. The fluid is within normal limits with an MVP 6.04 cm. 3. There has been good interval growth with the fetus currently 41st percentile. 4. Limited anatomical scan appears normal. Dictated by: Jonny Brown MD 12/22/2024 08:00 Jonny Brown MD in [facility] 12/22/2024 08:00
== END 2024-12-21 23:59 | disposition home or self-care (01) ==
PROVIDERS: PCP Internal Medicine; Visit Provider Obstetrics & Gynecology
DX: O36.63X0 Maternal care for excessive fetal growth, third trimester, not applicable or unspecified (principal); O10.913 Unspecified pre-existing hypertension complicating pregnancy, third trimester; Z3A.31 31 weeks gestation of pregnancy
CPT/HCPCS: 76816

== ENCOUNTER 2025-01-15 16:20 | Outpatient (CLI) | payer BC, SELFPAY | END 2025-01-15 23:59 | disposition home or self-care (01) | LOC: LAB.DROPOF 16:20 | PROVIDERS: PCP Obstetrics & Gynecology; Visit Provider Obstetrics & Gynecology | DX: O10.919 Unspecified pre-existing hypertension complicating pregnancy, unspecified trimester (principal); Z3A.00 Weeks of gestation of pregnancy not specified | CPT/HCPCS: 86403 ==

== ENCOUNTER 2025-01-23 15:40 | Outpatient (CLI) | payer BC, SELFPAY ==
[2025-01-23 15:57] VITALS: BMI 34.7
[2025-01-23 16:05] LABS: Microscopic, Urine URINE MICROSCOPIC (MICROSCOPIC)
[2025-01-23 16:11] LABS: Bilirubin,Urine Negative (Negative); Color,Urine YELLOW (Yellow); Glucose,Urine (UA) Negative (Negative); Ketones,Urine Negative (Negative); Leukocyte Esterase,Urine Negative (Negative); PH,Urine 6.0 (5.0-8.5); Protein,Urine Negative (Negative); Specific Gravity, Urine 1.015 (1.005-1.030); Urobilinogen,Urine 0.2 EU/dl (0.2)
[2025-01-23 16:15] VITALS: BP 134/93; PULSE 103; RESP 19; TEMP 36.4; O2SAT 100; BMI 19.2
[2025-01-23 16:29] LABS: Bacteria,Urine 4+ /lpf; Squamous Epithelial Cell,Urine 20-50 #/hpf (0-5); WBC,Urine 20-50 #/hpf (0-3)
--- NOTE | 2025-01-23 16:57 | EXP.ACUTE.PN ---
Subjective *Date: 01/23/25 *Time: 16:57 Interval history: She is a 24-year-old 1 para 0 at 36 weeks gestational age. She complains of decreased movement. Medical Exam Vital signs and Labs for Last 24 Hours: Intake and Output 01/23/25 01/23/25 01/23/25 03:59 11:59 19:59 Other: Weight 222 lb Patient Weight 01/24/25 11:59 Weight 222 lb Laboratory Results - last 24 hr 01/23/25 15:49: Urine Color Yellow, Urine Appearance Clear, Urine pH 6.0, Ur Specific [place] 1.015, Urine Protein Negative, Urine Glucose (UA) Negative, Urine Ketones Negative, Urine Blood Negative, Urine Nitrate Negative, Urine Bilirubin Negative, Urine Urobilinogen 0.2, Ur Leukocyte Esterase Negative, Urine RBC 3-5, Urine WBC 20-50, Ur Squamous Epith Cells 20-50, Urine Bacteria 4+ I & O for Labs for Last 24 Hours: Intake & Output 01/21/25 01/22/25 01/23/25 01/24/25 11:59 11:59 11:59 11:59 Weight 222 lb Head: Present normocephalic Neck: Present normal inspection Respiratory: Present normal respiratory effort; Absent accessory muscle use Assessment and Plan *Assessment and plan (1) Decreased movement during : Status: Acute Qualifiers: Fetus number: single or unspecified fetus Trimester: third trimester Qualified Code(s): O36.8130 - Decreased movements, third trimester, not applicable or unspecified Category: Medical Code(s): O36.8190 - Decreased movements, unspecified trimester, not applicable or unspecified Plan 1. She came in with decreased movement and did receive a Mountain Dew. 2. The nonstress test is reactive and the baby is now moving well. 3. She will be discharged home to follow-up with Dr. Barber tomorrow.
== END 2025-01-23 17:15 | disposition home or self-care (01) ==
LOC: OBOUT 15:41 → OB 15:42
PROVIDERS: PCP Internal Medicine; Visit Provider Nurse Practitioner Obstetrics & Gynecology
DX: O10.913 Unspecified pre-existing hypertension complicating pregnancy, third trimester (principal); O99.213 Obesity complicating pregnancy, third trimester; E66.9 Obesity, unspecified; Z3A.35 35 weeks gestation of pregnancy
CPT/HCPCS: 59025; 81001; 87086; 99212; G0463

== ENCOUNTER 2025-02-07 16:28 | Outpatient (CLI) | payer BC, SELFPAY ==
[2025-02-07 16:59] LABS: Hematocrit 35.3 % (37.0-47.0); Hemoglobin 12.0 g/dL (12.2-16.2); Immature Granulocytes % 0.8 %; Mean Corpuscular HGB Conc 34.0 g/dL (31.8-35.4); Mean Corpuscular Hemoglobin 28.6 pg (27.0-31.2); Mean Corpuscular Volume 84.2 fl (81-99); Nucleated Red Blood Cells % 0 %; Platelet Count 381 K/mm3 (142-424); Red Blood Count 4.19 M/mm3 (4.20-5.40); Red Cell Distribution Width-SD 39.6 fL; White Blood Count 11.8 K/mm3 (4.8-10.8)
[2025-02-07 17:43] LABS: Chloride 107 mmol/L (98-107)
[2025-02-07 17:44] LABS: Albumin Level 3.5 g/dl (3.5-5.0); Potassium 4.3 mmoL/L (3.5-5.1); Sodium 135 mmol/L (136-145)
[2025-02-07 17:46] LABS: Blood Urea Nitrogen 10 mg/dl (7-17); Creatinine,Serum 0.40 mg/dl (0.52-1.04); Estimated Glomerular Filt Rate 196 ml/min (>60); GFR (African American) 237 ML/MIN (>60)
[2025-02-07 17:47] LABS: Alanine Aminotransferase 13 U/L (12-78); Albumin/Globulin Ratio 1.3 (1.1-1.8); Alkaline Phosphatase 156 U/L (38-126); Anion Gap 11.3 mEq/L (5-15); Aspartate Amino Transferase 20 U/L (14-36); Bilirubin,Total 0.7 mg/dl (0.2-1.3); Calcium 9.1 mg/dl (8.4-10.2); Carbon Dioxide 21 mmol/L (22.0-30.0); Globulin 2.8 g/dL (1.3-3.2); Glucose 97 mg/dl (74-100); Total Protein,Serum 6.3 g/dl (6.3-8.2)
[2025-02-07 18:08] LABS: Uric Acid 3.3 mg/dl (2.5-6.2)
== END 2025-02-07 23:59 | disposition home or self-care (01) ==
LOC: LAB 16:28
PROVIDERS: PCP Internal Medicine; Visit Provider Obstetrics & Gynecology
DX: O13.9 Gestational [pregnancy-induced] hypertension without significant proteinuria, unspecified trimester (principal)
CPT/HCPCS: 36415; 80053; 84550; 85025

== ENCOUNTER 2025-02-12 12:41 | Observation (INO) | payer BC, SELFPAY ==
[2025-02-12 12:50] VITALS: BMI 36.9
[2025-02-12 13:39] LABS: Hematocrit 34.4 % (37.0-47.0); Hemoglobin 11.7 g/dL (12.2-16.2); Immature Granulocytes % 0.8 %; Mean Corpuscular HGB Conc 34.0 g/dL (31.8-35.4); Mean Corpuscular Hemoglobin 28.6 pg (27.0-31.2); Mean Corpuscular Volume 84.1 fl (81-99); Nucleated Red Blood Cells % 0 %; Platelet Count 344 K/mm3 (142-424); Red Blood Count 4.09 M/mm3 (4.20-5.40); Red Cell Distribution Width-SD 39.8 fL; White Blood Count 11.9 K/mm3 (4.8-10.8)
[2025-02-12 13:44] LABS: Albumin Level 3.4 g/dl (3.5-5.0); Chloride 106 mmol/L (98-107); Potassium 3.5 mmoL/L (3.5-5.1); Sodium 130 mmol/L (136-145)
[2025-02-12 13:47] LABS: Alanine Aminotransferase 18 U/L (12-78); Albumin/Globulin Ratio 1.1 (1.1-1.8); Alkaline Phosphatase 145 U/L (38-126); Anion Gap 7.5 mEq/L (5-15); Aspartate Amino Transferase 25 U/L (14-36); Bilirubin,Total 1.0 mg/dl (0.2-1.3); Blood Urea Nitrogen 6 mg/dl (7-17); Calcium 8.6 mg/dl (8.4-10.2); Carbon Dioxide 20 mmol/L (22.0-30.0); Creatinine Clearance Estimated 356 mL/min (50-200); Creatinine,Serum 0.40 mg/dl (0.52-1.04); Estimated Glomerular Filt Rate 196 ml/min (>60); GFR (African American) 237 ML/MIN (>60); Globulin 3.1 g/dL (1.3-3.2); Glucose 134 mg/dl (74-100); Total Protein,Serum 6.5 g/dl (6.3-8.2)
[2025-02-12 14:30] LABS: Microscopic, Urine URINE MICROSCOPIC (MICROSCOPIC)
[2025-02-12 14:34] LABS: Bilirubin,Urine Negative (Negative); Color,Urine YELLOW (Yellow); Glucose,Urine (UA) Negative (Negative); Ketones,Urine Negative (Negative); Leukocyte Esterase,Urine Negative (Negative); PH,Urine 5.5 (5.0-8.5); Protein,Urine Negative (Negative); Specific Gravity, Urine 1.020 (1.005-1.030); Urobilinogen,Urine 0.2 EU/dl (0.2)
[2025-02-12 14:43] VITALS: BP 127/70; PULSE 73; RESP 17; TEMP 37.2; O2SAT 98; BMI 36.9
[2025-02-12 14:49] LABS: Bacteria,Urine 1+ /lpf
[2025-02-12 20:15] VITALS: BP 125/90; PULSE 71; RESP 18; TEMP 37.3; O2SAT 100
[2025-02-12] MEDS: LACTATED RINGERS 1000ML 1,000 ML 500 ML IV (23:54)
[2025-02-13 03:37] VITALS: BP 134/77; PULSE 59; RESP 17; TEMP 36.9; O2SAT 100
[2025-02-13 08:23] VITALS: BP 134/81; PULSE 75; RESP 18; TEMP 36.8; O2SAT 98
[2025-02-13 08:44] LABS: RPR W/RFX Titers Nonreactive (Nonreactive)
--- NOTE | 2025-02-13 10:24 | EXP.HPDC ---
General Admission date:: 02/12/25 Discharge date: 02/13/25 *Admission Date: 02/12/25 *Chief complaint: Induction *History of present illness: Shavon is a 24yo G1 who presented for duction of labor at 39 weeks and 2 days gestation. SHANE is based on last menstrual period which was consistent with an 8-week ultrasound. 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 She endorses good movement, denies any contractions or leakage of fluid. [facility] Disclaimer: The information contained in this section may have been updated after the patient was seen, as this information can be updated by other users. Medical History Chronic hypertension affecting Endocrine, nutritional and metabolic diseases complicating childbirth Surgical History History of tonsillectomy and adenoidectomy Family History Other No significant family history Social History (Updated 02/13/25 @ 08:20 by Sarina Cheung RN) Smoking Status: Former smoker tobacco type: cigarettes packs per day: 1 second hand exposure: Yes alcohol intake: never substance use type: denies use current occupational status: employed Travel in the last 8 weeks?: None household members: family housing: house Have you lived/traveled outside US in past 30 days?: No Contact w/someone who lives/traveled outside US past 30 days?: No Exposure to someone with infectious disease in past 14 days?: No Do you have a fever (greater than 100.4 F or 38 C)?: No Have you tested positive for COVID-19?: No Exposed to someone with COVID-19 in past 14 days?: No Do you have a sore throat?: No Do you have a cough?: No Do you have any weakness?: No Are you experiencing any nausea/vomitting?: No Do you have any diarrhea?: No Are you experiencing any unusual bleeding?: No Do you have any muscle aches/pain?: No Do you have any abdominal pain?: No Are you experiencing loss of taste or smell?: No Other Medical History Have you received the Flu Vaccine for this season: No Have you received the Pneumonia Vaccine: No Exam Data for Last 24 hours Vital signs and Labs for Last 24 Hours: Temp Pulse Resp BP Pulse Ox O2 Del Method 98.3 F 75 18 134/81 98 Room Air 02/13/25 08:23 02/13/25 08:23 02/13/25 08:23 02/13/25 08:23 02/13/25 08:23 02/13/25 08:23 Laboratory Results - last 24 hr 02/12/25 13:15: WBC 11.9 H, RBC 4.09 L, Hgb 11.7 L, Hct 34.4 L, MCV 84.1, MCH 28.6, MCHC 34.0, RDW 12.9, Plt Count 344, MPV 10.1, Neut % (Auto) 71.7, Lymph % (Auto) 19.5, [place] % (Auto) 5.0, Eos % (Auto) 2.7, Baso % (Auto) 0.3, Neut # (Auto) 8.5 H, Lymph # (Auto) 2.3, [place] # (Auto) 0.6, Eos # (Auto) 0.3, Baso # (Auto) 0.0, Sodium 130 L, Potassium 3.5, Chloride 106, Carbon Dioxide 20 L, Anion Gap 7.5, BUN 6 L, Creatinine 0.40 L, Estimated Creat Clear 356 H, Estimated GFR 196, Est GFR ( Amer) 237, Glucose 134 H, Calcium 8.6, Total Bilirubin 1.0, AST 25, ALT 18, Alkaline Phosphatase 145 H, Total Protein 6.5, Albumin 3.4 L, Globulin 3.1, Albumin/Globulin Ratio 1.1, RPR w/Rflx to Titer Nonreactive, Blood Type A Positive, Antibody Screen Positive, Antibody Identification See Comments, Crossmatch (AHG) See Detail 02/12/25 13:40: Urine Color Yellow, Urine Appearance Clear, Urine pH 5.5, Ur Specific [place] 1.020, Urine Protein Negative, Urine Glucose (UA) Negative, Urine Ketones Negative, Urine Blood Negative, Urine Nitrate Negative, Urine Bilirubin Negative, Urine Urobilinogen 0.2, Ur Leukocyte Esterase Negative, Urine RBC None, Urine WBC 3-5, Ur Squamous Epith Cells 3-5, Urine Bacteria 1+ 07/22/25 15:12: Blood Type Confirm A Positive I & O for Last 24 hours: Intake & Output 02/10/25 02/11/25 02/12/25 02/13/25 23:59 23:59 23:59 23:59 Weight 229 lb Constitutional Constitutional: no acute distress *Routine HEENT Exam Head: Present normocephalic Eye: Present EOMI and PERRL ENT: Present mucous membranes moist *Routine Neck Exam Neck: Present supple; Absent lymphadenopathy *Routine Respiratory Exam Respiratory: Present CTA bilaterally *Routine Cardiovascular Exam Cardiovascular: Present RRR *Routine Abdominal Exam Abdominal: Present soft and normoactive bowel sounds; Absent tenderness *Routine Rectal Exam Rectal:: deferred *Routine Genitalia Exam Genitalia:: deferred *Routine Extremities Exam Extremities: Absent cyanosis, clubbing or edema *Routine Skin Exam Skin: Present warm; Absent rash *Routine Neurological Exam Neurological: Present alert and oriented X3 Meds Home Medications and Allergies Home Medications ?Medication ?Instructions ?Recorded ?Confirmed ?Type docosahexaenoic acid 200 mg mg PO 10/09/24 02/07/25 History capsule ( DHA) hydroxyzine HCl 25 mg tablet 25 mg PO HS #30 tabs 12/21/24 02/07/25 Rx valacyclovir 500 mg tablet 500 mg PO BID #60 tabs 01/15/25 02/07/25 Rx (Valtrex) New Prescriptions to Start Prescriptions: Allergies Allergy/AdvReac Type Severity Reaction Status Date / Time cephalexin (From KEFLEX) Allergy Unknown Verified 02/07/25 15:52 Hospital Course Hospital Course Hospital Course: She was admitted last night and received 1 dose of 50 mcg of vaginal Cytotec. She had tachysystole and was not giving any additional doses. This morning secondary to labor and delivery since this decision was made that it was not safe to proceed with an elective induction. The patient has not had any medications in greater than 12 hours. Her strip is reactive. She will go home and return on Tuesday morning for delivery. Routine discharge recs was reviewed. Strict return precautions were discussed with the patient. Her and her partner voiced understanding On return Tuesday morning, 4 AM, we will check her cervix and decide if she needs an additional dose of Cytotec or Pitocin. If decision is made to proceed with Cytotec she will receive 25 mics vaginally so the Pitocin can be started within 4 hours Results Data Completed and Pending Labs on day of discharge: Labs from last 24 hours 02/12/25 02/12/25 02/12/25 15:12 13:40 13:15 WBC 11.9 H RBC 4.09 L Hgb 11.7 L Hct 34.4 L MCV 84.1 MCH 28.6 MCHC 34.0 RDW 12.9 Plt Count 344 MPV 10.1 Neut % (Auto) 71.7 Lymph % (Auto) 19.5 [place] % (Auto) 5.0 Eos % (Auto) 2.7 Baso % (Auto) 0.3 Neut # (Auto) 8.5 H Lymph # (Auto) 2.3 [place] # (Auto) 0.6 Eos # (Auto) 0.3 Baso # (Auto) 0.0 Sodium 130 L Potassium 3.5 Chloride 106 Carbon Dioxide 20 L Anion Gap 7.5 BUN 6 L Creatinine 0.40 L Estimated Creat Clear 356 H Estimated GFR 196 Est GFR ( Amer) 237 Glucose 134 H Calcium 8.6 Total Bilirubin 1.0 AST 25 ALT 18 Alkaline Phosphatase 145 H Total Protein 6.5 Albumin 3.4 L Globulin 3.1 Albumin/Globulin Ratio 1.1 Urine Color Yellow Urine Appearance Clear Urine pH 5.5 Ur Specific [place] 1.020 Urine Protein Negative Urine Glucose (UA) Negative Urine Ketones Negative Urine Blood Negative Urine Nitrate Negative Urine Bilirubin Negative Urine Urobilinogen 0.2 Ur Leukocyte Esterase Negative Urine RBC None Urine WBC 3-5 Ur Squamous Epith Cells 3-5 Urine Bacteria 1+ RPR w/Rflx to Titer Nonreactive Blood Type A Positive Blood Type Confirm A Positive Antibody Screen Positive Antibody Identification See Comments Crossmatch (AHG) See Detail Discharge Plan Disposition Patient Disposition: Home, Self-Care Discharge Order Discharge Orders: Discharge Order (Routine); Ordered 02/13/25 Ordered By: Desirae Barber Follow up Plan Prescriptions/Medication Reconciliation: Continued DHA 200 mg capsule PO valacyclovir [Valtrex] 500 mg tablet 500 mg PO BID Qty: 60 0RF hydroxyzine HCl 25 mg tablet 25 mg PO HS Qty: 30 5RF Discontinued aspirin [Adult Aspirin Regimen] 81 mg tablet,delayed release (DR/EC) 81 mg PO DAILY Problem Reconciliation Problems Reviewed?: Yes Patient Discharge Instructions ACTIVITY: Continue current activity DIET: regular diet Print Language: Japanese Providers Primary Care Provider: Jonathan Stone [place] Provider: Desirae Barber Attending Provider: Desirae Barber
== END 2025-02-13 10:37 | disposition home or self-care (01) ==
PROVIDERS: Admitting Provider Obstetrics & Gynecology; PCP Internal Medicine; Visit Provider Obstetrics & Gynecology
DX: O61.0 Failed medical induction of labor (principal); O16.3 Unspecified maternal hypertension, third trimester; O99.283 Endocrine, nutritional and metabolic diseases complicating pregnancy, third trimester; Z3A.39 39 weeks gestation of pregnancy; Z87.891 Personal history of nicotine dependence; Z88.1 Allergy status to other antibiotic agents; Z79.899 Other long term (current) drug therapy
CPT/HCPCS: 36415; 59025; 80053; 81001; 85025; 86592; 86850; 86870; 96360; 96361; G0378; J7120

== ENCOUNTER 2025-02-14 01:28 | Inpatient (IN) | payer BC, SELFPAY ==
--- NOTE | 2025-02-13 22:37 | EXP.HP ---
History of Present Illness *Admission Date: 02/13/25 *Reason for visit:: Labor *History of present illness: Shavon Watkins is a 24-year-old at 39 weeks and 3 days gestation who presented to labor and delivery with regular painful contractions and vaginal bleeding. 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 On presentation patient endorsed good movement and denies any leakage of fluid. A+, antibody negative, rubella immune, hepatitis B negative, hepatitis C negative, RPR negative, HIV negative 1 hour GTT: 106 GBS negative PFSH PFS Disclaimer: The information contained in this section may have been updated after the patient was seen, as this information can be updated by other users. Medical History Chronic hypertension affecting Endocrine, nutritional and metabolic diseases complicating childbirth Surgical History History of tonsillectomy and adenoidectomy Family History Other No significant family history Social History (Updated 02/13/25 @ 08:20 by Sarina Cheung RN) Smoking Status: Former smoker tobacco type: cigarettes packs per day: 1 second hand exposure: Yes alcohol intake: never substance use type: denies use current occupational status: employed Travel in the last 8 weeks?: None household members: family housing: house Have you lived/traveled outside US in past 30 days?: No Contact w/someone who lives/traveled outside US past 30 days?: No Exposure to someone with infectious disease in past 14 days?: No Do you have a fever (greater than 100.4 F or 38 C)?: No Have you tested positive for COVID-19?: No Exposed to someone with COVID-19 in past 14 days?: No Do you have a sore throat?: No Do you have a cough?: No Do you have any weakness?: No Do you have any diarrhea?: No Are you experiencing any unusual bleeding?: No Do you have any muscle aches/pain?: No Do you have any abdominal pain?: No Are you experiencing loss of taste or smell?: No Other Medical History Have you received the Flu Vaccine for this season: No Have you received the Pneumonia Vaccine: No Review of Systems Review of Systems Review of systems (narrative): Review of Systems Constitutional: Denies fever, chills, and sweats Eyes: Denies vision change/ pain Respiratory: Denies cough and shortness of breath Cardiovascular: Denies chest pain and lightheadedness Gastrointestinal: Admits abdominal pain with contractions. Denies nausea, vomiting. Genitourinary: Denies dysuria and incontinence Musculoskeletal: Denies shoulder pain and back pain Neurological: Denies change in speech or headaches Meds Home Medications and Allergies Home Medications ?Medication ?Instructions ?Recorded ?Confirmed ?Type docosahexaenoic acid 200 mg mg PO 10/09/24 02/07/25 History capsule ( DHA) hydroxyzine HCl 25 mg tablet 25 mg PO HS #30 tabs 12/21/24 02/07/25 Rx valacyclovir 500 mg tablet 500 mg PO BID #60 tabs 01/15/25 02/07/25 Rx (Valtrex) New Prescriptions to Start Prescriptions: Allergies Allergy/AdvReac Type Severity Reaction Status Date / Time cephalexin (From KEFLEX) Allergy Unknown Verified 02/07/25 15:52 Exam Data for Last 24 hours Narrative: General: patient is alert oriented in no acute distress and responds appropriately to questions. HEENT: NCAT, EOMI, moist mucous membranes, neck supple with full ROM Cardiovascular: RRR +S1/S2, no murmurs or rubs Pulmonary: Clear to auscultation bilaterally, nonlabored breathing, symmetric chest rise Abdominal: Gravid abdomen appropriate for gestation. No guarding, rebound, or tenderness noted. Extremities: trace edema, no tenderness or cyanosis noted Skin: Normal turgor, intact, warm. Negative for erythema, pallor, petechia, or lesions Neurologic: Negative for sensory or motor deficit Psychiatric: Normal affect, normal thought process, good judgment and insight, no depression or anxious mood appreciated. *Routine HEENT Exam Head: Present normocephalic and atraumatic Eye: Present EOMI, PERRL and normal accommodation; Absent conjunctival icterus, scleral injection, nystagmus or exophthalmos ENT: Present mucous membranes moist *Routine Respiratory Exam Respiratory: Present CTA bilaterally, normal respiratory effort, able to speak in complete sentences and symmetric chest movement; Absent accessory muscle use, decreased breath sounds, rales, respiratory distress, wheezes, distant breath sounds or diminished air movement *Routine Cardiovascular Exam Cardiovascular: Present RRR, Normal S1 and Normal S2; Absent murmur or gallop *Routine Abdominal Exam Abdominal: Present soft and normoactive bowel sounds; Absent tenderness, distended, rebound or guarding *Routine Rectal Exam Rectal:: deferred *Routine Genitalia Exam Genitalia:: normal female Assessment and Plan *Assessment and plan (1) Obesity affecting : Status: Acute Category: Medical Code(s): O99.210 - Obesity complicating , unspecified trimester (2) Chronic hypertension affecting : Status: Acute Category: Medical Code(s): O10.919 - Unspecified pre-existing hypertension complicating , unspecified trimester (3) HSV-2 infection complicating : Status: Acute Category: Medical Code(s): O98.519 - Other viral diseases complicating , unspecified trimester; B00.9 - Herpesviral infection, unspecified Plan - Monitor vitals - Admit to L&D for labor monitoring and delivery - Plan for augmentation of labor with AROM and pitocin if required. - External FHR and TOCO monitor - Exam on admission: 1.5/70/-1/soft - GBS neg/ Blood type: A+ - Hemoglobin: 11.7, Plt: 344 - Plan for epidural anesthesia - Anticipate vaginal delivery of female : Kisha #Chronic HTN -BP well controlled. continue following #HSV2 -No prodromal symptoms.
[2025-02-14 01:01] VITALS: BMI 36.9
[2025-02-14] MEDS: DEXTROSE 5%-LACTATED RINGERS 1,000 ML 125 ML IV ×2 (01:43→09:23)
[2025-02-14] MEDS: OXYTOCIN/RINGERS LACTATE 30 UNITS/500 ML BAG IV (01:45)
[2025-02-14 01:48] VITALS: BP 124/68; PULSE 71; RESP 18; TEMP 36.9; O2SAT 99; BMI 36.8
[2025-02-14 01:54] LABS: Hematocrit 33.9 % (37.0-47.0); Hemoglobin 11.4 g/dL (12.2-16.2); Immature Granulocytes % 0.7 %; Mean Corpuscular HGB Conc 33.6 g/dL (31.8-35.4); Mean Corpuscular Hemoglobin 28.3 pg (27.0-31.2); Mean Corpuscular Volume 84.1 fl (81-99); Nucleated Red Blood Cells % 0 %; Platelet Count 291 K/mm3 (142-424); Red Blood Count 4.03 M/mm3 (4.20-5.40); Red Cell Distribution Width-SD 39.3 fL; White Blood Count 13.4 K/mm3 (4.8-10.8)
[2025-02-14] MEDS: BUTORPHANOL TARTRATE 1 MG/ML VIAL IV (03:38)
[2025-02-14 03:51] LABS: Microscopic, Urine URINE MICROSCOPIC (MICROSCOPIC)
[2025-02-14 03:55] LABS: Bilirubin,Urine Negative (Negative); Glucose,Urine (UA) Negative (Negative); Ketones,Urine Negative (Negative); Leukocyte Esterase,Urine 1+ (Negative); PH,Urine 6.0 (5.0-8.5); Protein,Urine 1+ (Negative); Specific Gravity, Urine 1.025 (1.005-1.030); Urobilinogen,Urine 1.0 EU/dl (0.2)
[2025-02-14 03:57] LABS: Color,Urine Dark Yellow (Yellow)
[2025-02-14 04:12] LABS: Amorphous Sediment,Urine 1+ /lpf; Bacteria,Urine 2+ /lpf; Mucus,Urine 1+ /lpf; WBC,Urine 20-50 #/hpf (0-3)
[2025-02-14] MEDS: LACTATED RINGERS 1000ML 1,000 ML 500 ML IV ×2 (04:24→05:46)
[2025-02-14] MEDS: ONDANSETRON 4MG/2ML VIAL 4 MG IV (04:53)
--- NOTE | 2025-02-14 05:56 | P.PNANES_ITS ---
[facility] Disclaimer: The information contained in this section may have been updated after the patient was seen, as this information can be updated by other users. Medical History Chronic hypertension affecting Endocrine, nutritional and metabolic diseases complicating childbirth Surgical History History of tonsillectomy and adenoidectomy Family History Other No significant family history Social History (Updated 02/14/25 @ 02:31 by Cece Mijares RN) Smoking Status: Former smoker tobacco type: cigarettes packs per day: 1 second hand exposure: Yes alcohol intake: never substance use type: denies use current occupational status: employed Travel in the last 8 weeks?: None household members: family housing: house Have you lived/traveled outside US in past 30 days?: No Contact w/someone who lives/traveled outside US past 30 days?: No Exposure to someone with infectious disease in past 14 days?: No Do you have a fever (greater than 100.4 F or 38 C)?: No Have you tested positive for COVID-19?: No Exposed to someone with COVID-19 in past 14 days?: No Do you have a sore throat?: No Do you have a cough?: No Do you have any weakness?: No Are you experiencing any nausea/vomitting?: No Do you have any diarrhea?: No Are you experiencing any unusual bleeding?: No Do you have any muscle aches/pain?: No Do you have any abdominal pain?: No Are you experiencing loss of taste or smell?: No [facility] Anesthesia Checklist Patient Identification Patient Identification: Arm Band Structural Data Admitted From: Inpatient Planned Operative Procedure/s: Labor Epidural Consent for Planned Operative Procedure(s) Verified: Yes Verified Documents: Surgical Consent and History and Physical Additional verifications Anesthesia Reactions: No Neurological Assessment Level of Consciousness: Awake, Alert and Appropriate Anesthesia Plan Anesthesia Risk discussed: Yes Anesthesia Plan: Verified ASA Class: II Anesthesia Type: Epidural
[2025-02-14 07:38] VITALS: BP 125/64; PULSE 78; RESP 18; TEMP 36.6; O2SAT 100
[2025-02-14 12:09] LABS: RPR W/RFX Titers Nonreactive (Nonreactive)
[2025-02-14] MEDS: OXYTOCIN/RINGERS LACTATE 30 UNITS/500 ML BAG 999 UNITS IV (13:56)
[2025-02-14] MEDS: OXYTOCIN/RINGERS LACTATE 30 UNITS/500 ML BAG 40 UNITS IV (14:10)
--- NOTE | 2025-02-14 15:11 | P.PCN_ITS ---
Delivery Note Delivery Date:: 02/14/25 Delivery Time:: 13:53 Anesthesia Type: Epidural Was labor medically induced?: Yes Induction method: per pitocin protocol Gestational age (weeks): 39 delivered prior to 39 weeks?: No Infant Gender: Female at 1 minute: 8 at 5 minutes: 8 Delivery Procedure:: Preoperative diagnosis: 1. at 39 completed this weeks gestation, vertex 2. Rh positive 3. GBS negative 4. Spontaneous rupture membranes 5. Chronic hypertension 6. 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 at 39 completed this weeks gestation, vertex 2. Rh positive 3. GBS negative 4. Spontaneous rupture membranes 5. Chronic hypertension 6. 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 Cord blood 2. Arterial cord gases Findings: 1. Liveborn viable female infant: Dulce. Apgars 8/8 at 1 and 5 minutes respectively. Weight 7lb 13oz. 3554g 2. Bilateral labial laceration Complications: Shoulder Dystocia Procedure: Nonoperative spontaneous vaginal delivery Reny Watkins is a 24-year-old G1, P0 who presented to labor and delivery late last night with contractions and spontaneous rupture of membranes. She was augmented with Pitocin and progressed to complete. She received an epidural for anesthesia. She progressed to complete. FHT were reassuring throughout labor. The was noted to be in the direct OA position. With effective maternal pushing there was a nonoperative spontaneous vaginal delivery at 1353. No nuchal cord present. There was a 2+ minute shoulder dystocia which was eventually relieved by delivery of the posterior shoulder. Following delivery the infant was moving all extremities well with no signs of injury. The posterior left shoulder delivered followed by the anterior shoulder. The body and lower extremities delivered without difficulty. The infant was bulb suctioned, the cord was clamped and cut, and the infant was passed off for evaluation by the jig builder helper.. Cord blood was collected and sent for routine testing. Arterial cord gases were collected. Pitocin was started and the placenta delivered. The uterus was firm and bleeding was minimal. The perineum, vaginal lee, cervix, and paraurethral area were inspected thoroughly. There were bilateral labial lacerations which were deep and bleeding heavily. These were repaired with 2-0 and 3-0 Vicryl suture all in the normal fashion. The patient was counseled regarding the events of the delivery and repair. The patient tolerated the delivery well. All counts were correct by nursing. Mother and were doing well and bonding upon my leaving the delivery room. Laceration:: vaginal Placental Delivery Description: Spontaneous
[2025-02-14] MEDS: PRENATAL MULTIVITAMIN W/IRON 1 EACH PO (16:44)
[2025-02-14] MEDS: ACETAMINOPHEN 500MG TAB 1000 MG PO ×2 (16:44→22:08)
[2025-02-14] MEDS: IBUPROFEN 400 MG TABLET 800 MG PO (16:44)
[2025-02-14] MEDS: WITCH HAZEL 40 PADS/BOX 1 EACH TP (18:00)
[2025-02-14] MEDS: BENZOCAINE-MENTHOL SPRAY 56GM CAN TP (18:01)
[2025-02-14 20:11] VITALS: BP 127/65; PULSE 77; RESP 19; TEMP 36.9; O2SAT 99
[2025-02-14] MEDS: ACYCLOVIR 400MG TAB 400 MG PO (22:08)
[2025-02-15] MEDS: IBUPROFEN 400 MG TABLET 800 MG PO ×2 (00:18→11:42)
[2025-02-15] MEDS: ACETAMINOPHEN 500MG TAB 1000 MG PO ×3 (04:51→18:29)
[2025-02-15 04:54] VITALS: BP 128/78; PULSE 69; RESP 16; TEMP 36.7; O2SAT 99
[2025-02-15 05:47] LABS: Hematocrit 32.4 % (37.0-47.0); Hemoglobin 10.4 g/dL (12.2-16.2); Immature Granulocytes % 0.9 %; Mean Corpuscular HGB Conc 32.1 g/dL (31.8-35.4); Mean Corpuscular Hemoglobin 27.4 pg (27.0-31.2); Mean Corpuscular Volume 85.5 fl (81-99); Nucleated Red Blood Cells % 0 %; Platelet Count 277 K/mm3 (142-424); Red Blood Count 3.79 M/mm3 (4.20-5.40); Red Cell Distribution Width-SD 40.9 fL; White Blood Count 16.8 K/mm3 (4.8-10.8)
[2025-02-15 08:52] VITALS: BP 127/67; PULSE 80; RESP 18; TEMP 36.9; O2SAT 98
[2025-02-15] MEDS: ACYCLOVIR 400MG TAB 400 MG PO ×2 (13:50→23:00)
--- NOTE | 2025-02-15 13:57 | EXP.PN ---
Subjective *Date: 02/15/25 *Time: 13:57 Interval history: Shavon Watkins is a G1, P1 day #1 following a spontaneous vaginal delivery complicated by shoulder dystocia at 39 weeks and 4 days gestation. was complicated by chronic hypertension and HSV-2. Her blood pressure has been well-controlled. Routine course. She is doing well, and was sleeping this morning when I rounded. -Reports pain is well-controlled -Reports she is tolerating p.o. without nausea or vomiting. -Reports her lochia is scant. -Undecided on contraception -She is breast-feeding her female -Ambulating, voiding difficulty or dysuria. Denies chest pain shortness of breath or pain in her legs. No further complaints at this time. Exam Data for Last 24 hours Vital signs and Labs for Last 24 Hours: Temp Pulse Resp BP Pulse Ox O2 Del Method 98.4 F 80 18 127/67 98 Room Air 02/15/25 08:52 02/15/25 08:52 02/15/25 08:52 02/15/25 08:52 02/15/25 08:52 02/15/25 08:52 Laboratory Results - last 24 hr 02/14/25 14:03: Cord ABG pH 7.24 L* 02/15/25 04:47: WBC 16.8 H D, RBC 3.79 L, Hgb 10.4 L, Hct 32.4 L, MCV 85.5, MCH 27.4, MCHC 32.1, RDW 13.2, Plt Count 277, MPV 10.8 H, Neut % (Auto) 71.2, Lymph % (Auto) 19.0, [place] % (Auto) 6.5, Eos % (Auto) 2.2, Baso % (Auto) 0.2, Neut # (Auto) 12.0 H, Lymph # (Auto) 3.2, [place] # (Auto) 1.1 H, Eos # (Auto) 0.4, Baso # (Auto) 0.0 I & O for Last 24 hours: Intake & Output 02/12/25 02/13/25 02/14/25 02/15/25 23:59 23:59 23:59 23:59 Output Total 500 / 500 Balance -500 / -500 Weight 229 lb 0.012 oz Microbiology Reports for the Last 24 Hours: Microbiology 02/13/25 22:00 Urine,Clean Catch Urine Culture - Preliminary Narrative: General: patient is alert oriented in no acute distress and responds appropriately to questions. Appears to be in minimal pain. HEENT: NCAT, EOMI, moist mucous membranes, neck supple with full ROM Cardiovascular: RRR +S1/S2, no murmurs or rubs Pulmonary: Clear to auscultation bilaterally, nonlabored breathing, symmetric chest rise Abdominal: Fundus below the umbilicus, firm, and tenderness appropriate for the period. Extremities: trace edema, no tenderness or cyanosis noted Skin: Normal turgor, intact, warm. Negative for erythema, pallor, petechia, or lesions Neurologic: Negative for sensory or motor deficit Psychiatric: Normal affect, normal thought process, good judgment and insight, no depression or anxious mood appreciated. Assessment and Plan *Assessment and plan (1) Shoulder dystocia during labor and delivery, delivered: Status: Acute Category: Medical Code(s): O66.0 - Obstructed labor due to shoulder dystocia (2) (spontaneous vaginal delivery): Status: Acute Category: Medical Code(s): O80 - Encounter for full-term uncomplicated delivery (3) Obesity affecting : Status: Acute Category: Medical Code(s): O99.210 - Obesity complicating , unspecified trimester (4) HSV-2 infection complicating : Status: Acute Category: Medical Code(s): O98.519 - Other viral diseases complicating , unspecified trimester; B00.9 - Herpesviral infection, unspecified (5) Chronic hypertension affecting : Status: Acute Category: Medical Code(s): O10.919 - Unspecified pre-existing hypertension complicating , unspecified trimester Plan Stable. PPD#1 s/p . -Doing well. VSS. Serial lochia and fundal checks. -Continue with perineal ice packs for discomfort -Hemoglobin: 11.4--> 10.4 - aymptomatic anemia noted. Vitals stable. Continue monitoring. DC with Fe -A+/antibody negative -, female infant -Contraception: undecided -Follow-up 2 weeks for routine visit -Dispo: home in 1-3 days pending mother/infant status
[2025-02-15] MEDS: PRENATAL MULTIVITAMIN W/IRON 1 EACH PO (18:29)
[2025-02-16 08:15] VITALS: BP 143/73; PULSE 81; RESP 18; TEMP 37.4; O2SAT 98
[2025-02-16] MEDS: ACYCLOVIR 400MG TAB 400 MG PO (08:32)
[2025-02-16] MEDS: ACETAMINOPHEN 500MG TAB 1000 MG PO (08:32)
--- NOTE | 2025-02-16 08:32 | EXP.DC.SUM ---
General Admission date:: 02/14/25 Discharge date: 02/16/25 HPI HPI HPI: Shavon Watkins is a 24-year-old at 39 weeks and 3 days gestation who presented to labor and delivery with regular painful contractions and vaginal bleeding. 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 On presentation patient endorsed good movement and denies any leakage of fluid. A+, antibody negative, rubella immune, hepatitis B negative, hepatitis C negative, RPR negative, HIV negative 1 hour GTT: 106 GBS negative Hospital Course Hospital Course Hospital Course: Reny Watkins is a 24-year-old G1, P1 day #2 from a vaginal delivery complicated by shoulder dystocia. She delivered a live viable female on 02/14/2025 at 1353. Infant weighed 7 pounds 13 ounces and was 19-1/2 inches long. Apgars were 8 and 8 at 1 and 5 minutes respectively. EBL was 200. She is breast-feeding. GBS was negative and rubella was immune. Her blood type is a positive. Her was complicated by chronic hypertension and this was well-controlled throughout and her course. Was also complicated by HSV-2 and she is requesting a refill on her Valtrex which was sent to her pharmacy. She has done well and has remained afebrile with her at her hospitalization. She is eating and drinking and ambulating. Her lochia is normal. She will be discharged home to follow-up with Dr. Barber in 2 weeks time. She will continue with her vitamins and iron. She will take ibuprofen as well. She was given the usual instructions with respect to limiting her activity, driving and sexual activity. She was given instructions with respect to wound care. Her condition on discharge is stable and improved. Exam Data for Last 24 hours Vital signs and Labs for Last 24 Hours: Temp Pulse Resp BP Pulse Ox O2 Del Method 98.4 F 80 18 127/67 98 Room Air 02/15/25 08:52 02/15/25 08:52 02/15/25 08:52 02/15/25 08:52 02/15/25 08:52 02/15/25 08:52 I & O for Last 24 hours: Intake & Output 02/13/25 02/14/25 02/15/25 02/16/25 23:59 23:59 23:59 23:59 Output Total 500 / 500 Balance -500 / -500 Weight 229 lb 0.012 oz Microbiology Reports for the Last 24 Hours: Microbiology 02/13/25 22:00 Urine,Clean Catch Urine Culture - Final Multiple organisms, suggests contamination. Narrative: General: patient is alert oriented in no acute distress and responds appropriately to questions. Appears to be in minimal pain. HEENT: NCAT, EOMI, moist mucous membranes, neck supple with full ROM Cardiovascular: RRR +S1/S2, no murmurs or rubs Pulmonary: Clear to auscultation bilaterally, nonlabored breathing, symmetric chest rise Abdominal: Fundus below the umbilicus, firm, and tenderness appropriate for the period. Extremities: trace edema, no tenderness or cyanosis noted Skin: Normal turgor, intact, warm. Negative for erythema, pallor, petechia, or lesions Neurologic: Negative for sensory or motor deficit Psychiatric: Normal affect, normal thought process, good judgment and insight, no depression or anxious mood appreciated. DS: Diagnosis Discharge Diagnosis (1) Shoulder dystocia during labor and delivery, delivered: Status: Acute Code(s): O66.0 - Obstructed labor due to shoulder dystocia (2) (spontaneous vaginal delivery): Status: Acute Code(s): O80 - Encounter for full-term uncomplicated delivery (3) Obesity affecting : Status: Acute Code(s): O99.210 - Obesity complicating , unspecified trimester (4) HSV-2 infection complicating : Status: Acute Code(s): O98.519 - Other viral diseases complicating , unspecified trimester; B00.9 - Herpesviral infection, unspecified (5) Chronic hypertension affecting : Status: Acute Code(s): O10.919 - Unspecified pre-existing hypertension complicating , unspecified trimester Meds Home Medications and Allergies Home Medications ?Medication ?Instructions ?Recorded ?Confirmed ?Type hydroxyzine HCl 25 mg tablet 25 mg PO HS #30 tabs 12/21/24 02/14/25 Rx [id number] 1 mg 1 tab PO DAILY 02/14/25 02/14/25 History tablet acetaminophen 500 mg tablet 500 mg PO Q6H PRN fever or pain 02/16/25 Rx #30 tabs ferrous sulfate 325 mg (65 mg 325 mg PO DAILY #30 tabs 02/16/25 Rx iron) tablet,delayed release ibuprofen 800 mg tablet 800 mg PO Q8H PRN pain #60 tabs 02/16/25 Rx sennosides 8.6 mg tablet (Senna 8.6 mg PO BIDP PRN Constipation 02/16/25 Rx Lax) #60 tabs valacyclovir 500 mg tablet 500 mg PO BID #60 tabs 02/16/25 Rx (Valtrex) New Prescriptions to Start Prescriptions: acetaminophen Desirae Barber ferrous sulfate Desirae Barber ibuprofen Desirae Barber sennosides [Senna Lax] Desirae Barber valacyclovir [Valtrex] Desirae Barber Allergies Allergy/AdvReac Type Severity Reaction Status Date / Time cephalexin (From KEFLEX) Allergy Unknown Rash Verified 02/14/25 06:53 Discharge Plan Disposition Patient Disposition: Home, Self-Care Discharge Order Discharge Orders: Discharge Order (Routine); Ordered 02/16/25 Ordered By: Desirae Barber Follow up Plan Follow up with: Desirae Barber DO [Staff Physician, [employer]] - 02/28/25 11:15 am Prescriptions/Medication Reconciliation: New sennosides [Senna Lax] 8.6 mg Tablet 8.6 mg PO BIDP PRN (Reason: Constipation) Qty: 60 2RF ibuprofen 800 mg tablet 800 mg PO Q8H PRN (Reason: pain) Qty: 60 2RF acetaminophen 500 mg tablet 500 mg PO Q6H PRN (Reason: fever or pain) Qty: 30 3RF ferrous sulfate 325 mg (65 mg iron) tablet,delayed release (DR/EC) 325 mg PO DAILY Qty: 30 3RF Continued hydroxyzine HCl 25 mg tablet 25 mg PO HS Qty: 30 5RF [id number] 1 mg Tablet 1 tab PO DAILY valacyclovir [Valtrex] 500 mg tablet 500 mg PO BID Qty: 60 6RF Discontinued aspirin 81 mg Capsule 81 mg PO DAILY Problem Reconciliation Problems Reviewed?: Yes Patient Discharge Instructions ACTIVITY: Continue current activity DIET: regular diet Additional Instructions: Congratulations on the delivery of your sweet baby girl. It is my privilege to be your doctor and I am so thankful I could be a part of your special day. Discharge: -Take 800 mg Ibuprofen every 8 hours as needed for pain. You can also take 500-1000 mg of Tylenol in between doses, every 6-8 hours. -Colace can be taken 1-2 times per day as you need to soften your stool. Make sure to drink at least 8 cups of water per day. -Iron supplements can make you constipated. You can take iron tablets every other day if constipation is too bad. -Nothing in the vagina for 6 weeks - no intercourse, douching, tampons. No tub baths or swimming pools. -Do not lift greater than 20pounds for 2 weeks, this is the equivalent of 2 gallons of milk. -Reasons to return to L&D or call On-Call doctor - fever (greater than 100.4) - heavy vaginal bleeding (soaking through 1 pad in less than 2 hours or passing clots that are egg sized) - vaginal discharge (malodorous and/or purulent) - severe headaches, leg tenderness/edema, or any other symptoms that warrant immediate medical attention. depression/blues - Normal to feel anxious/overwhelmed for first 2 weeks - Talk to your doctor if: anxiety lasts over 2 weeks, trouble bonding with baby, withdrawing from other family members, thoughts of harming yourself or others Blood pressure and preeclampsia instructions 1. Please take your blood pressure twice daily. 2. Please call if greater than 2 values are higher than: 150 systolic (the top number) or 100 diastolic (the bottom number). 3. Please go to the emergency room or labor and delivery triage if any value is higher than: 160 systolic (the top number) or 110 diastolic (the bottom number). 4. Please call if unrelenting headache (does not go away with rest or Tylenol or ibuprofen), changes in vision (spots, floaters, flashes of light), chest pain, shortness of breath, or right upper quadrant (liver) abdominal pain. Desirae Barber DO [facility] [phone] *Nothing in the Vagina for 6 weeks* *No strenuous activity* *No heavy lifting* *No tub baths until okay's by MD* Patient Instructions: Depression, Hemorrhage, DI for Labor and Delivery, Vaginal , DI for Pre-eclampsia, [facility] Post Discharge Instructions Print Language: Macedonian Providers Primary Care Provider: Jonathan Stone Admit Provider: Desirae Barber Attending Provider: Desirae Barber
[2025-02-16] MEDS: IBUPROFEN 400 MG TABLET 800 MG PO (08:34)
== END 2025-02-16 12:03 | disposition home or self-care (01) | DRG 806 ==
LOC: OBOUT 01:28 → OB 01:28
PROVIDERS: Admitting Provider Obstetrics & Gynecology; PCP Internal Medicine; Visit Provider Obstetrics & Gynecology
DX: O10.92 Unspecified pre-existing hypertension complicating childbirth (principal); O98.52 Other viral diseases complicating childbirth; Z37.0 Single live birth; Z3A.39 39 weeks gestation of pregnancy; B00.9 Herpesviral infection, unspecified; O66.0 Obstructed labor due to shoulder dystocia; O99.214 Obesity complicating childbirth; O70.0 First degree perineal laceration during delivery; O90.81 Anemia of the puerperium; Z87.891 Personal history of nicotine dependence; Z23 Encounter for immunization
CPT/HCPCS: 36415; 51702; 59025; 81001; 82800; 85025; 86592; 86850; 87086; 94761; J0595; J2003; J2405; J2795; J3010; J7120; J7121

== ENCOUNTER 2025-03-20 09:30 | Outpatient (CLI) | payer BC, SELFPAY | END 2025-03-20 23:59 | disposition home or self-care (01) | LOC: LAB.DROPOF 03-21 12:48 | PROVIDERS: PCP Obstetrics & Gynecology; Visit Provider Obstetrics & Gynecology | DX: O80 Encounter for full-term uncomplicated delivery (principal); Z86.19 Personal history of other infectious and parasitic diseases | CPT/HCPCS: 87491; 87529; 87591; 87661; 87798; 87801 ==